=== PATIENT | female | born 1995 | race Hispanic/Latino ===

== ENCOUNTER 2017-11-26 16:37 | Emergency (ER) | payer OTHER, SELFPAY ==
[2017-11-26 17:12] LABS: Pregnancy Test - Urine (BHCG) Negative (Negative)
[2017-11-26 17:14] LABS: Pregu Control Background? CLEAR/WHITE (CLR/WHITE); Pregu Control Bar Appear? YES (CONTROL BAR)
[2017-11-26 17:15] LABS: Specific Gravity 1.032 (1.002-1.036)
[2017-11-26] MEDS ORDERED: Metoclopramide HCl 10 MG TAB ONE (17:37)
[2017-11-26] MEDS ORDERED: Ibuprofen 800 MG TAB ONE (17:37)
[2017-11-26] MEDS ORDERED: diphenhydrAMINE 25 MG CAP ONE (17:37)
[2017-11-26] MEDS ORDERED: Acetaminophen 500 MG TAB ONE (17:37)
== END 2017-11-26 17:54 | disposition home or self-care (01) ==
LOC: MADERS 16:37
DX: J06.9 Acute upper respiratory infection, unspecified (principal)
CPT/HCPCS: 81025; 99284

== ENCOUNTER 2023-10-31 05:58 | Emergency (ER) | payer OTHER, SELFPAY | END 2023-10-31 08:10 | disposition short-term general hospital (02) | LOC: MADERS 05:58 | DX: T19.2XXA Foreign body in vulva and vagina, initial encounter (principal) | CPT/HCPCS: 99284 ==

== ENCOUNTER 2024-05-21 14:29 | Emergency (ER) | payer OTHER ==
[2024-05-21 15:26] LABS: BHCG - Serum Negative (NEGATIVE); Pregs Control Background? CLEAR/WHITE (CLR/WHITE); Pregs Control Bar Appear? YES (CONTROL BAR)
[2024-05-21 15:34] LABS: Troponin I Less than 0.010 ng/mL (< 0.028)
[2024-05-21 15:35] LABS: ALT (SGPT) 23 U/L (8-55); AST (SGOT) 17 U/L (5-34); Albumin 3.9 g/dL (3.5-5.0); Alkaline Phosphatase 54 U/L (40-110); Anion Gap 12 mmol/L (10-20); BUN (Urea Nitrogen) 13 mg/dL (7.0-18.7); Band 1 % (5-11); Bilirubin, Total 0.4 mg/dL (0.2-1.2); Calc. Creatinine Clearance 0 mL/min (70-130); Carbon Dioxide 23 mmol/L (22-29); Chloride 107 mmol/L (98-107); Eosinophils 3 % (0-10); Estimated GFR 98; Globulin 3.1 g/dL (2.4-3.5); Glucose 93 mg/dL (70-105); Lipase 43 U/L (8-78); Lymphocytes 18 % (21-51); MDiff Complete? YES; Monocytes 3 % (0-10); Neutrophil 56 % (42-75); Potassium 3.9 mmol/L (3.5-5.1); Sodium 138 mmol/L (136-145)
[2024-05-21 15:36] LABS: Hematocrit 35.4 % (36.0-47.0); Hemoglobin 11.8 g/dL (12.0-16.0); Mean Corpuscular HGB CONC 33.2 g/dL (32.0-36.0); Mean Corpuscular Hemoglobin 28.9 pg (27.0-31.0); Mean Platelet Volume 6.9 fL (7.4-10.4); Platelet Count 310 10x3/uL (130-400); Red Blood Cell (RBC) Count 4.07 mill/uL (4.20-5.40); White Blood Cell (WBC) Count 7.2 10x3/uL (4.8-10.8)
[2024-05-21 15:37] LABS: Manual Diff?? YES; Platelet Adequacy Comment Appears Adequate; Reactive Lymphocytes 19 % (0-10)
== END 2024-05-21 16:42 | disposition home or self-care (01) ==
LOC: MADERS 14:29
DX: R07.89 Other chest pain (principal)
CPT/HCPCS: 71045; 80053; 83690; 83735; 84484; 84703; 85025; 85379; 93005; 94760